=== PATIENT | female | born 1975 | race Hispanic/Latino ===

== ENCOUNTER 2021-03-13 09:44 | Emergency (ER) | payer SELFPAY ==
[2021-03-13] MEDS ORDERED: Dexamethasone 10 MG/ML VIAL ONE (11:23)
[2021-03-13 19:13] LABS: SARS-CoV-2 PCR by NAA Not Detected (NotDetected)
== END 2021-03-13 11:58 | disposition home or self-care (01) ==
LOC: CSHERS 09:44
DX: J04.0 Acute laryngitis (principal); Z20.822 Contact with and (suspected) exposure to COVID-19; J45.909 Unspecified asthma, uncomplicated; E11.9 Type 2 diabetes mellitus without complications
CPT/HCPCS: 36416; 99283; J1100; U0003; U0005

== ENCOUNTER 2021-08-26 08:54 | Emergency (ER) | payer OTHER, SELFPAY | END 2021-08-26 10:31 | disposition home or self-care (01) | LOC: CSHERS 08:54 | DX: U07.1 COVID-19 (principal); J01.90 Acute sinusitis, unspecified; B96.89 Other specified bacterial agents as the cause of diseases classified elsewhere; N76.0 Acute vaginitis; E11.9 Type 2 diabetes mellitus without complications | CPT/HCPCS: 36416; 87804; 99283; U0003; U0005 ==

== ENCOUNTER 2022-12-10 09:32 | Emergency (ER) | payer SELFPAY | END 2022-12-10 11:53 | disposition home or self-care (01) | LOC: CSHERS 09:32 | DX: M62.830 Muscle spasm of back (principal); J45.909 Unspecified asthma, uncomplicated; E11.9 Type 2 diabetes mellitus without complications; Z79.4 Long term (current) use of insulin | CPT/HCPCS: 99283 ==

== ENCOUNTER 2023-05-17 09:46 | Emergency (ER) | payer SELFPAY ==
[2023-05-17 10:57] LABS: Bilirubin Neg (Negative); Blood, Urine 25 (Negative); Clarity Slightly Cloudy (Clear); Glucose, Urine (Dipstick) >=1000 mg/dL (Negative); Ketone, Urine 15 mg/dL (Negative); Leukocyte 25 (Negative); Nitrite Negative (Negative); Protein, Urine (Dipstick) 30 mg/dl (Neg-Trace); Urobilinogen Normal mg/dL (Less than 2)
[2023-05-17 11:33] LABS: RBC/HPF 0-3 HPF (0-3)
[2023-05-17 11:34] LABS: Bacteria/HPF 2+ HPF (None Seen); CAUTI Indications for Culture Dysuria,urgency,freq; WBC/HPF 0-3 HPF (0-3)
[2023-05-17 11:35] LABS: Urine Culture Reflex No No
== END 2023-05-17 12:24 | disposition home or self-care (01) ==
LOC: CSHERS 09:46
DX: R30.0 Dysuria (principal); E11.9 Type 2 diabetes mellitus without complications
CPT/HCPCS: 81001; 87086; 99283

== ENCOUNTER 2023-08-09 17:07 | Inpatient (IN) | payer SELFPAY ==
[2023-08-09 17:17] VITALS: BMI 37.8
[2023-08-09] MEDS ORDERED: Glucagon 1 MG/ML KIT IM PRN ×2 (17:44→20:05)
[2023-08-09] MEDS ORDERED: Dextrose 5% in Water 1,000 ML IV PRN ×2 (17:44→20:05)
[2023-08-09] MEDS ORDERED: Dextrose 50% Abboject 50 ML SYRINGE SLOW IVP PRN ×2 (17:44→20:05)
[2023-08-09] MEDS ORDERED: Ondansetron PF 4 MG/2 ML Vial IVP PRN (17:50)
[2023-08-09] MEDS: cefTRIAXone\\ROCEPHIN 1 GM in Sodium Chloride 0.9% 100 ML IVPB SCH (18:11)
[2023-08-09] MEDS: Lactated Ringer's 1,000 ML IV SCH (18:11)
[2023-08-09] MEDS: Acetaminophen 325 MG TAB PO PRN (18:12)
[2023-08-09] MEDS: HumaLOG 300 UNITS/3 ML VIAL SC PRN ×2 (18:12→22:04)
[2023-08-09] MEDS ORDERED: hydrALAZINE 20 MG/ML VIAL SLOW IVP PRN (19:53)
[2023-08-09] MEDS ORDERED: HumaLOG 300 UNITS/3 ML VIAL SC PRN (20:05)
[2023-08-09] MEDS ORDERED: Insulin Regular, Human 100 UNIT/ML 10 ML VIAL SC PRN (20:05)
[2023-08-09 20:25] LABS: Hematocrit 34.5 % (34.9-44.5); Hemoglobin 11.9 g/dL (12.0-15.5); Mean Corpuscular HGB CONC 34.5 g/dL (32.0-36.0); Mean Corpuscular Hemoglobin 28.7 pg (27.0-33.0); Mean Corpuscular Volume 83.1 fL (81.6-98.3); Mean Platelet Volume 11.7 fL (7.4-10.4); Platelet Count 219 10x3/uL (150-450); RBC Distribution Width 13.1 % (11.5-14.5); Red Blood Cell (RBC) Count 4.15 10x6/uL (3.90-5.03); White Blood Cell (WBC) Count 29.6 10x3/uL (3.5-10.5)
[2023-08-09 20:27] LABS: MDiff Complete? YES
[2023-08-09 20:40] LABS: Platelet Adequacy Comment Appears Adequate
[2023-08-09 20:42] LABS: Microcytosis SLIGHT = 6-15 cells (100X) (0-5/hpf)
[2023-08-09 20:45] LABS: Band 10 % (5-11); Lymphocytes 8 % (21-51); Monocytes 4 % (0-10); Neutrophil 78 % (42-75)
[2023-08-09 20:48] LABS: Anion Gap 15 mmol/L (10-20); BUN (Urea Nitrogen) 10 mg/dL (7.0-18.7); Calc. Creatinine Clearance 107 mL/min (70-130); Calcium 8.5 mg/dL (7.8-10.44); Carbon Dioxide 20 mmol/L (22-29); Chloride 104 mmol/L (98-107); Estimated GFR 81; Glucose 315 mg/dL (70-105); Potassium 3.4 mmol/L (3.5-5.1); Sodium 136 mmol/L (136-145)
[2023-08-09] MEDS: metroNIDAZOLE 500 MG in Premix 1 BAG IVPB SCH (20:59)
[2023-08-09] MEDS: Doxycycline 100 MG CAP PO SCH (20:59)
[2023-08-09] MEDS: Lantus 1000 UNITS/10 ML VIAL SC SCH (20:59)
[2023-08-09] MEDS: Lisinopril 10 MG TAB PO SCH (23:00)
[2023-08-10 03:57] LABS: #Basophils 0.05 10x3/uL (0.0-0.2); #Eosinphils 0.05 10x3/uL (0.0-0.5); #Monocytes 0.94 10x3/uL (0.0-1.1); #Neutrophils 16.34 10x3/uL (1.5-8.4); %Basophils 0.3 % (0.0-2.0); %Eosinophils 0.3 % (0.0-6.0); %Lymphocytes 6.6 % (18.0-47.0); %Neutrophils 87.3 % (40.0-75.0); Hematocrit 33.7 % (34.9-44.5); Hemoglobin 11.4 g/dL (12.0-15.5); Mean Corpuscular HGB CONC 33.8 g/dL (32.0-36.0); Mean Corpuscular Hemoglobin 28.5 pg (27.0-33.0); Mean Corpuscular Volume 84.3 fL (81.6-98.3); Mean Platelet Volume 11.6 fL (7.4-10.4); Platelet Count 203 10x3/uL (150-450); RBC Distribution Width 13.2 % (11.5-14.5); White Blood Cell (WBC) Count 18.7 10x3/uL (3.5-10.5)
[2023-08-10 04:05] LABS: ALT (SGPT) 16 U/L (8-55); AST (SGOT) 23 U/L (5-34); Albumin 2.8 g/dL (3.5-5.0); Alkaline Phosphatase 86 U/L (40-110); Anion Gap 12 mmol/L (10-20); BUN (Urea Nitrogen) 12 mg/dL (7.0-18.7); Bilirubin, Total 0.8 mg/dL (0.2-1.2); Calc. Creatinine Clearance 113 mL/min (70-130); Calcium 8.5 mg/dL (7.8-10.44); Carbon Dioxide 24 mmol/L (22-29); Chloride 104 mmol/L (98-107); Estimated GFR 85; Globulin 3.3 g/dL (2.4-3.5); Glucose 189 mg/dL (70-105); Potassium 3.4 mmol/L (3.5-5.1); Protein, Total 6.1 g/dL (6.0-8.3); Sodium 137 mmol/L (136-145)
[2023-08-10] MEDS: Potassium Chloride 20 MEQ TAB PO SCH (08:33)
[2023-08-10] MEDS: Lisinopril 10 MG TAB PO SCH (09:02)
[2023-08-10] MEDS: glyBURIDE 5 MG TAB PO SCH (09:03)
[2023-08-10 13:18] LABS: Hemoglobin A1c 13.1 % (4.0-6.0)
[2023-08-10] MEDS ORDERED: Electrolyte Replacement Protocol 1 EACH FS SCH (14:00)
[2023-08-10] MEDS ORDERED: Potassium Chloride 20 MEQ TAB PO SCH (15:00)
[2023-08-10] MEDS: Potassium Bicarbonate/Cit Ac 20 MEQ TAB PO SCH (18:00)
[2023-08-10] MEDS: HumaLOG 300 UNITS/3 ML VIAL SC PRN (20:10)
[2023-08-10] MEDS: Enoxaparin 40 MG (0.4 mL) SYRINGE SC SCH (22:09)
[2023-08-10] MEDS: Lantus 1000 UNITS/10 ML VIAL SC SCH (22:11)
[2023-08-11 03:42] LABS: #Basophils 0.05 10x3/uL (0.0-0.2); #Eosinphils 0.33 10x3/uL (0.0-0.5); #Monocytes 0.69 10x3/uL (0.0-1.1); #Neutrophils 4.97 10x3/uL (1.5-8.4); %Basophils 0.6 % (0.0-2.0); %Eosinophils 3.9 % (0.0-6.0); %Lymphocytes 29.2 % (18.0-47.0); %Monocytes 8.1 % (0.0-10.0); Hematocrit 32.6 % (34.9-44.5); Mean Corpuscular HGB CONC 33.7 g/dL (32.0-36.0); Mean Corpuscular Hemoglobin 28.4 pg (27.0-33.0); Mean Platelet Volume 12.2 fL (7.4-10.4); Platelet Count 205 10x3/uL (150-450); RBC Distribution Width 13.2 % (11.5-14.5); Red Blood Cell (RBC) Count 3.88 10x6/uL (3.90-5.03); White Blood Cell (WBC) Count 8.6 10x3/uL (3.5-10.5)
[2023-08-11 04:00] LABS: ALT (SGPT) 15 U/L (8-55); AST (SGOT) 21 U/L (5-34); Albumin 2.6 g/dL (3.5-5.0); Alkaline Phosphatase 93 U/L (40-110); Anion Gap 12 mmol/L (10-20); BUN (Urea Nitrogen) 12 mg/dL (7.0-18.7); Bilirubin, Total 0.2 mg/dL (0.2-1.2); Calc. Creatinine Clearance 120 mL/min (70-130); Calcium 8.7 mg/dL (7.8-10.44); Carbon Dioxide 22 mmol/L (22-29); Chloride 107 mmol/L (98-107); Estimated GFR 92; Globulin 3.1 g/dL (2.4-3.5); Glucose 132 mg/dL (70-105); Magnesium 1.6 mg/dL (1.6-2.6); Potassium 3.4 mmol/L (3.5-5.1); Protein, Total 5.7 g/dL (6.0-8.3); Sodium 138 mmol/L (136-145)
[2023-08-11 04:09] LABS: Phosphorus 2.5 mg/dL (2.3-4.7)
[2023-08-11] MEDS: metFORMIN 500 MG TAB PO SCH (08:10)
[2023-08-11] MEDS: Potassium Chloride 20 MEQ TAB PO SCH (08:10)
[2023-08-11] MEDS: Magnesium 2 GM/50 ML(in water) 2 GM in Premix 1 BAG IVPB SCH (10:31)
[2023-08-12 11:31] VITALS: BP 114/56; TEMP 98.3
== END 2023-08-12 13:00 | disposition home or self-care (01) | DRG 872 ==
LOC: CSHPP 17:07
PROVIDERS: ADMIT Obstetrics & Gynecology; ATTEND Obstetrics & Gynecology
DX: A41.9 Sepsis, unspecified organism (principal); N73.9 Female pelvic inflammatory disease, unspecified; N70.93 Salpingitis and oophoritis, unspecified; Z88.5 Allergy status to narcotic agent; Z88.0 Allergy status to penicillin; Z88.1 Allergy status to other antibiotic agents; I10 Essential (primary) hypertension; E11.65 Type 2 diabetes mellitus with hyperglycemia; E87.6 Hypokalemia; Z79.899 Other long term (current) drug therapy; Z79.4 Long term (current) use of insulin; E66.9 Obesity, unspecified; Z68.37 Body mass index [BMI] 37.0-37.9, adult
CPT/HCPCS: 36415; 36416; 76856; 80053; 83036; 83735; 84100; 85025; J0696; J1650; J1815; J3475; J3490; J7120

== ENCOUNTER 2023-10-07 08:19 | Observation (INO) | payer SELFPAY ==
[2023-10-07] MEDS ORDERED: Morphine 4 MG/ML VIAL ONE ×2 (09:21→12:43)
[2023-10-07] MEDS ORDERED: Iopamidol 300 61% 100 ML VIAL FS ONE (09:22)
[2023-10-07] MEDS ORDERED: Ondansetron PF 4 MG/2 ML Vial ONE (09:22)
[2023-10-07 09:28] LABS: #Basophils 0.04 10x3/uL (0.0-0.2); #Eosinphils 0.05 10x3/uL (0.0-0.5); #Monocytes 0.82 10x3/uL (0.0-1.1); #Neutrophils 20.45 10x3/uL (1.5-8.4); %Basophils 0.2 % (0.0-2.0); %Eosinophils 0.2 % (0.0-6.0); %Lymphocytes 3.1 % (18.0-47.0); %Monocytes 3.7 % (0.0-10.0); %Neutrophils 92.3 % (40.0-75.0); Hematocrit 39.5 % (34.9-44.5); Hemoglobin 12.9 g/dL (12.0-15.5); Mean Corpuscular HGB CONC 32.7 g/dL (32.0-36.0); Mean Corpuscular Hemoglobin 27.7 pg (27.0-33.0); Mean Corpuscular Volume 84.9 fL (81.6-98.3); Mean Platelet Volume 11.7 fL (7.4-10.4); Platelet Count 223 10x3/uL (150-450); RBC Distribution Width 13.1 % (11.5-14.5); Red Blood Cell (RBC) Count 4.65 10x6/uL (3.90-5.03); White Blood Cell (WBC) Count 22.2 10x3/uL (3.5-10.5)
[2023-10-07 09:40] LABS: BHCG - Serum Negative (NEGATIVE); Pregs Control Background? CLEAR/WHITE (CLR/WHITE); Pregs Control Bar Appear? YES (CONTROL BAR)
[2023-10-07 12:48] LABS: ALT (SGPT) 11 U/L (8-55); AST (SGOT) 15 U/L (5-34); Albumin 3.7 g/dL (3.5-5.0); Alkaline Phosphatase 105 U/L (40-110); Anion Gap 13 mmol/L (10-20); BUN (Urea Nitrogen) 14 mg/dL (7.0-18.7); Bilirubin, Total 0.7 mg/dL (0.2-1.2); Calc. Creatinine Clearance 0 mL/min (70-130); Calcium 9.5 mg/dL (7.8-10.44); Carbon Dioxide 24 mmol/L (22-29); Chloride 101 mmol/L (98-107); Estimated GFR 79; Globulin 3.5 g/dL (2.4-3.5); Glucose 320 mg/dL (70-105); Lipase 21 U/L (8-78); Magnesium 1.6 mg/dL (1.6-2.6); Potassium 4.1 mmol/L (3.5-5.1); Protein, Total 7.2 g/dL (6.0-8.3); Sodium 134 mmol/L (136-145)
[2023-10-07 13:13] LABS: Bilirubin Neg (Negative); Blood, Urine Negative (Negative); Clarity Clear (Clear); Glucose, Urine (Dipstick) >=1000 mg/dL (Negative); Ketone, Urine Negative (Negative); Leukocyte Negative (Negative); Nitrite Negative (Negative); Protein, Urine (Dipstick) 15 mg/dl (Neg-Trace); Urobilinogen Normal mg/dL (Less than 2)
[2023-10-07 13:14] LABS: Hematocrit 39.9 % (34.9-44.5); Mean Corpuscular HGB CONC 32.6 g/dL (32.0-36.0); Mean Corpuscular Hemoglobin 27.9 pg (27.0-33.0); Mean Corpuscular Volume 85.6 fL (81.6-98.3); Platelet Count 211 10x3/uL (150-450); RBC Distribution Width 13.2 % (11.5-14.5); Red Blood Cell (RBC) Count 4.66 10x6/uL (3.90-5.03); White Blood Cell (WBC) Count 28.1 10x3/uL (3.5-10.5)
[2023-10-07 13:30] LABS: ALT (SGPT) 50 U/L (8-55); AST (SGOT) 106 U/L (5-34); Albumin 3.5 g/dL (3.5-5.0); Alkaline Phosphatase 106 U/L (40-110); Anion Gap 13 mmol/L (10-20); BUN (Urea Nitrogen) 12 mg/dL (7.0-18.7); Bilirubin, Total 1.2 mg/dL (0.2-1.2); Calc. Creatinine Clearance 0 mL/min (70-130); Calcium 9.4 mg/dL (7.8-10.44); Carbon Dioxide 24 mmol/L (22-29); Chloride 102 mmol/L (98-107); Estimated GFR 84; Globulin 3.6 g/dL (2.4-3.5); Glucose 312 mg/dL (70-105); Potassium 4.2 mmol/L (3.5-5.1); Protein, Total 7.1 g/dL (6.0-8.3); Sodium 135 mmol/L (136-145)
[2023-10-07 14:23] LABS: Bacteria/HPF None Seen HPF (None Seen); CAUTI Indications for Culture Pelvic or flank pain; RBC/HPF None Seen HPF (0-3); Squamous Epithelial 0-3 HPF (0-3); WBC/HPF 0-3 HPF (0-3)
[2023-10-07 14:24] LABS: Urine Culture Reflex No No
[2023-10-07 14:38] LABS: Band 10 % (5-11); Lymphocytes 2 % (21-51); Monocytes 5 % (0-10)
[2023-10-07 14:39] LABS: Neutrophil 82 % (42-75)
[2023-10-07 14:43] LABS: Platelet Adequacy Comment Appears Adequate; RBC Morph Comment Within Normal Limits
[2023-10-07 14:44] LABS: MDiff Complete? YES
[2023-10-07] MEDS ORDERED: Ondansetron PF 4 MG/2 ML Vial IVP PRN (18:59)
[2023-10-07] MEDS ORDERED: Ondansetron ODT 4 MG TAB PO PRN (18:59)
[2023-10-07] MEDS ORDERED: Acetaminophen 650 MG Suppository PR PRN (18:59)
[2023-10-07] MEDS ORDERED: Glucagon 1 MG/ML KIT IM PRN (19:00)
[2023-10-07] MEDS ORDERED: Dextrose 50% Abboject 50 ML SYRINGE SLOW IVP PRN (19:00)
[2023-10-07] MEDS ORDERED: Morphine 4 MG/ML VIAL SLOW IVP PRN (19:05)
[2023-10-07] MEDS ORDERED: Morphine 2 MG/ML VIAL SLOW IVP PRN (19:05)
[2023-10-07] MEDS ORDERED: Dextrose 5% in Water 1,000 ML IV PRN (20:00)
[2023-10-07] MEDS: Pantoprazole 40 MG VIAL IVP SCH (21:30)
[2023-10-07] MEDS: cefTRIAXone\\ROCEPHIN 2 GM in Sodium Chloride 0.9% 100 ML IVPB SCH (21:30)
[2023-10-07] MEDS: Lantus 1000 UNITS/10 ML VIAL SC SCH (21:30)
[2023-10-07] MEDS: Insulin Lispro 100 UNIT/ML 10 ML VIAL SC PRN (21:31)
[2023-10-07] MEDS: Acetaminophen 325 MG TAB PO PRN (21:35)
[2023-10-07] MEDS: diphenhydrAMINE 50 MG/ML VIAL IVP SCH (22:17)
[2023-10-08 04:36] LABS: ALT (SGPT) 70 U/L (8-55); AST (SGOT) 58 U/L (5-34); Albumin 2.9 g/dL (3.5-5.0); Alkaline Phosphatase 93 U/L (40-110); Anion Gap 13 mmol/L (10-20); BUN (Urea Nitrogen) 14 mg/dL (7.0-18.7); Calc. Creatinine Clearance 105 mL/min (70-130); Calcium 8.7 mg/dL (7.8-10.44); Carbon Dioxide 23 mmol/L (22-29); Chloride 103 mmol/L (98-107); Estimated GFR 81; Glucose 222 mg/dL (70-105); Potassium 3.7 mmol/L (3.5-5.1); Protein, Total 5.9 g/dL (6.0-8.3); Sodium 135 mmol/L (136-145)
[2023-10-08 04:40] LABS: #Basophils 0.03 10x3/uL (0.0-0.2); #Eosinphils 0.14 10x3/uL (0.0-0.5); #Monocytes 0.85 10x3/uL (0.0-1.1); #Neutrophils 13.71 10x3/uL (1.5-8.4); %Basophils 0.2 % (0.0-2.0); %Eosinophils 0.8 % (0.0-6.0); %Lymphocytes 11.5 % (18.0-47.0); %Monocytes 5.1 % (0.0-10.0); %Neutrophils 81.9 % (40.0-75.0); Hematocrit 34.4 % (34.9-44.5); Hemoglobin 11.3 g/dL (12.0-15.5); Mean Corpuscular HGB CONC 32.8 g/dL (32.0-36.0); Mean Corpuscular Volume 85.1 fL (81.6-98.3); Platelet Count 195 10x3/uL (150-450); RBC Distribution Width 13.3 % (11.5-14.5); Red Blood Cell (RBC) Count 4.04 10x6/uL (3.90-5.03); White Blood Cell (WBC) Count 16.7 10x3/uL (3.5-10.5)
[2023-10-08] MEDS: Enoxaparin 40 MG (0.4 mL) SYRINGE SC SCH (10:07)
[2023-10-08] MEDS: Pantoprazole 40 MG VIAL IVP SCH (10:08)
[2023-10-08 11:09] VITALS: BP 114/64; TEMP 99.3
[2023-10-08 16:33] LABS: Hemoglobin A1c 11.8 % (4.0-6.0)
== END 2023-10-08 12:50 | disposition home or self-care (01) ==
LOC: CSHERS 08:19 → CSHERHOLD 14:22 → CSHPED 19:52
PROVIDERS: ADMIT Family Medicine; ATTEND Internal Medicine
DX: D72.829 Elevated white blood cell count, unspecified (principal); R10.9 Unspecified abdominal pain; E11.9 Type 2 diabetes mellitus without complications; J45.909 Unspecified asthma, uncomplicated; Z79.4 Long term (current) use of insulin; Z79.899 Other long term (current) drug therapy; Z88.5 Allergy status to narcotic agent; Z88.0 Allergy status to penicillin; Z88.1 Allergy status to other antibiotic agents
CPT/HCPCS: 36415; 36416; 74177; 76856; 80053; 81001; 83036; 83605; 83690; 83735; 84145; 84443; 84703; 85025; 87040; 96372; 96374; 96375; 96376; G0378; J0696; J1200; J1650; J1815; J2272; J2405; J2470; Q9967

== ENCOUNTER 2023-12-22 08:44 | Emergency (ER) | payer OTHER, SELFPAY ==
[2023-12-22] MEDS ORDERED: Acetaminophen 325 MG TAB ONE (12:04)
== END 2023-12-22 12:04 | disposition home or self-care (01) ==
LOC: CSHERS 08:44
DX: B34.9 Viral infection, unspecified (principal); E11.9 Type 2 diabetes mellitus without complications; Z79.4 Long term (current) use of insulin
CPT/HCPCS: 71045; 87428

== ENCOUNTER 2024-02-14 13:38 | Emergency (ER) | payer OTHER | END 2024-02-14 15:36 | disposition home or self-care (01) | LOC: CSHERS 13:38 | DX: J06.9 Acute upper respiratory infection, unspecified (principal); E11.9 Type 2 diabetes mellitus without complications; Z79.4 Long term (current) use of insulin; Z79.84 Long term (current) use of oral hypoglycemic drugs | CPT/HCPCS: 71045; 87428 ==

== ENCOUNTER 2024-10-31 15:07 | Emergency (ER) | payer OTHER ==
[2024-10-31] MEDS ORDERED: Cyclobenzaprine 10 MG TAB ONE (16:24)
[2024-10-31] MEDS ORDERED: Ketorolac Tromethamine 30 MG (1 mL) VIAL ONE (16:24)
== END 2024-10-31 16:29 | disposition home or self-care (01) ==
LOC: CSHERS 15:07
DX: M54.2 Cervicalgia (principal); M54.6 Pain in thoracic spine; M62.838 Other muscle spasm; E11.9 Type 2 diabetes mellitus without complications; Z79.4 Long term (current) use of insulin
CPT/HCPCS: 96372; 99283; J1885

== ENCOUNTER 2025-01-17 14:09 | Emergency (ER) | payer OTHER ==
[2025-01-17 15:25] LABS: #Basophils 0.04 10x3/uL (0.0-0.2); #Eosinophils 0.03 10x3/uL (0.0-0.5); #Monocytes 0.97 10x3/uL (0.0-1.1); #Neutrophils 19.68 10x3/uL (1.5-8.4); %Basophils 0.2 % (0.0-2.0); %Eosinophils 0.1 % (0.0-6.0); %Lymphocytes 3.0 % (18.0-47.0); %Monocytes 4.5 % (0.0-10.0); %Neutrophils 91.7 % (40.0-75.0); Hematocrit 38.0 % (34.9-44.5); Hemoglobin 12.5 g/dL (12.0-15.5); Mean Corpuscular Hemoglobin 26.9 pg (27.0-33.0); Mean Corpuscular Volume 81.7 fL (81.6-98.3); Platelet Count 267 10x3/uL (150-450); Red Blood Cell (RBC) Count 4.65 10x6/uL (3.90-5.03); White Blood Cell (WBC) Count 21.47 10x3/uL (3.5-10.5)
[2025-01-17 15:37] LABS: BHCG - Serum Negative (NEGATIVE); Pregs Control Background? CLEAR/WHITE (CLR/WHITE); Pregs Control Bar Appear? YES (CONTROL BAR)
[2025-01-17 15:42] LABS: ALT (SGPT) 11 U/L (Less than 34); AST (SGOT) 30 U/L (11-34); Albumin 3.7 g/dL (3.1-4.5); Alkaline Phosphatase 130 U/L (40-110); Anion Gap 15 mmol/L (10-20); BUN (Urea Nitrogen) 16 mg/dL (9.8-20.1); Bilirubin, Total 0.7 mg/dL (0.3-1.2); Calc. Creatinine Clearance 0 mL/min (70-130); Calcium 9.4 mg/dL (7.8-10.44); Carbon Dioxide 23 mmol/L (22-29); Chloride 101 mmol/L (98-107); Globulin 3.8 g/dL (2.4-3.5); Lipase 31 U/L (8-78); Potassium 4.5 mmol/L (3.5-5.1); Sodium 134 mmol/L (136-145)
[2025-01-17 15:44] LABS: Glucose, Urine (Dipstick) >=1000 mg/dL (Negative); Leukocyte Negative (Negative); Protein, Urine (Dipstick) 15 mg/dl (Neg-Trace); Specific Gravity, Urine 1.010 (1.005-1.030)
[2025-01-17 15:48] LABS: Glucose 439 mg/dL (70-105)
[2025-01-17 15:57] LABS: CAUTI Indications for Culture Pelvic or flank pain; Mucous/LPF Rare LPF (<2+); Urine Culture Reflex No No; WBC/HPF 0-3 HPF (0-3)
[2025-01-17] MEDS ORDERED: Ketorolac Tromethamine 30 MG (1 mL) VIAL ONE (19:24)
== END 2025-01-17 21:09 | disposition home or self-care (01) ==
LOC: CSHERS 14:09
DX: K52.9 Noninfective gastroenteritis and colitis, unspecified (principal); D25.9 Leiomyoma of uterus, unspecified; E11.9 Type 2 diabetes mellitus without complications
CPT/HCPCS: 36415; 36416; 74177; 76856; 80053; 81001; 83605; 83690; 84703; 85025; 87040; 87077; 87086; 96361; 96374; 96375; J1885; J3010

== ENCOUNTER 2025-02-15 15:47 | Emergency (ER) | payer OTHER ==
[2025-02-15] MEDS ORDERED: Ketorolac Tromethamine 30 MG (1 mL) VIAL ONE (16:18)
[2025-02-15 17:14] LABS: Glucose, Urine (Dipstick) >=1000 mg/dL (Negative); Leukocyte Negative (Negative); Protein, Urine (Dipstick) 15 mg/dl (Neg-Trace); Specific Gravity, Urine 1.010 (1.005-1.030)
[2025-02-15 17:21] LABS: Bacteria/HPF None Seen HPF (None Seen); CAUTI Indications for Culture Pelvic or flank pain; Urine Culture Reflex No No; WBC/HPF 0-3 HPF (0-3)
== END 2025-02-15 18:12 | disposition home or self-care (01) ==
LOC: CSHERS 15:47
DX: N94.6 Dysmenorrhea, unspecified (principal); E11.9 Type 2 diabetes mellitus without complications
CPT/HCPCS: 81001; 96372; 99284; J1885